=== PATIENT | male | born 1990 | race Hispanic/Latino ===

== ENCOUNTER 2022-11-18 07:36 | Emergency (ER) | payer OTHER ==
[~2022-11-18] VITALS: Ht 167.6 cm; Wt 83.9 kg
[2022-11-18 07:37] VITALS: BP 143/91
[2022-11-18] MEDS ORDERED: ZOSYN 3.375GM +NS 50ML IVPB ONE (08:00)
[2022-11-18] MEDS ORDERED: ACETAMINOPHEN 500 MG TABLET PO ONE (08:00)
[2022-11-18] MEDS ORDERED: KETOROLAC 30MG VIAL (30MG/ML) IVP ONE (08:00)
[2022-11-18 08:30] LABS: HEMATOCRIT 42.4 % (42-54); MEAN CORPUSCULAR HEMOGLOBIN 29.6 pg (27.0-33.0); MEAN CORPUSCULAR HGB CONC 32.8 g/dL (32.0-36.0); MEAN CORPUSCULAR VOLUME 90.4 fL (79-99); PLATELET COUNT (AUTO) 215 K/uL (130-400); RED BLOOD CELL COUNT(AUTO) 4.69 MIL/uL (4.50-6.20); WHITE BLOOD COUNT (AUTO) 11.9 K/uL (4.8-10.8)
[2022-11-18 08:44] LABS: ALBUMIN 2.9 g/dL (3.5-5.0); POTASSIUM 3.8 mmol/L (3.5-5.1); TOTAL PROTEIN, SERUM 6.8 g/dL (6.0-8.3)
[2022-11-18] MEDS ORDERED: IBUP-1493 PO (09:44)
[2022-11-18] MEDS ORDERED: AMOX-427 PO (09:44)
[2022-11-18 09:45] LABS: LYMPHOCYTES % (MANUAL) 6 % (22-44); MAN.DIFF COMMENT-IMPRESSION MANUAL DIFFERENTIAL; MONOCYTES % (MANUAL) 5 % (2-9); SEGMENTED NEUTROPHILS % 89 % (40-70)
[2022-11-18 09:46] LABS: PLATELET MORPHOLOGY COMMENT ADEQUATE
== END 2022-11-18 10:17 | disposition home or self-care (01) ==
LOC: EDH 07:36
DX: L03.011 Cellulitis of right finger (principal)
CPT/HCPCS: 99284; 96365; 96366; 96375; 80053; 85025; 36415; 73130; J1885; J2543

== ENCOUNTER 2022-11-20 08:04 | Emergency (ER) | payer OTHER ==
[~2022-11-20] VITALS: Ht 167.6 cm; Wt 83.9 kg
[~2022-11-20 08:04] MED LIST: AMOX-427 PO; IBUP-1493 PO
[2022-11-20 08:52] LABS: BASOPHILS % (AUTO) 0.3 % (0.0-5.0); EOSINOPHILS % (AUTO) 0.8 % (0.0-8.0); HEMATOCRIT 44.2 % (42-54); LYMPHOCYTES % (AUTO) 10.8 % (21.0-51.0); MEAN CORPUSCULAR HEMOGLOBIN 29.1 pg (27.0-33.0); MEAN CORPUSCULAR HGB CONC 32.4 g/dL (32.0-36.0); MEAN CORPUSCULAR VOLUME 89.8 fL (79-99); MONOCYTES % (AUTO) 6.3 % (3.0-13.0); NEUTROPHILS % (AUTO) 81.5 % (40.0-77.0); PLATELET COUNT (AUTO) 278 K/uL (130-400); RED BLOOD CELL COUNT(AUTO) 4.92 MIL/uL (4.50-6.20); RED CELL DISTRIBUTION WIDTH 12.7 % (11.0-15.5); WHITE BLOOD COUNT (AUTO) 7.2 K/uL (4.8-10.8)
[2022-11-20 09:00] LABS: CREATININE 0.9 mg/dL (0.5-1.5); POTASSIUM 4.2 mmol/L (3.5-5.1)
[2022-11-20] MEDS ORDERED: CLINDAMYCIN IVPB 600MG/50ML 50 ML IV STA (09:00)
[2022-11-20 09:06] LABS: ALBUMIN 3.2 g/dL (3.5-5.0); TOTAL PROTEIN, SERUM 7.7 g/dL (6.0-8.3)
[2022-11-20] MEDS ORDERED: VALA100031 PO (09:34)
[2022-11-20 09:59] VITALS: BP 122/69
== END 2022-11-20 10:09 | disposition home or self-care (01) ==
LOC: EDH 08:04
DX: L03.011 Cellulitis of right finger (principal); B02.9 Zoster without complications; Z79.1 Long term (current) use of non-steroidal anti-inflammatories (NSAID); Z79.899 Other long term (current) drug therapy
CPT/HCPCS: 99284; 96365; 80053; 85025; 36415; J3490

== ENCOUNTER 2024-03-25 12:22 | Emergency (ER) | payer SELFPAY ==
[~2024-03-25] VITALS: Ht 177.8 cm; Wt 87.1 kg
[~2024-03-25 12:22] MED LIST changes: +VALA100031 PO
[2024-03-25] MEDS: KETOROLAC 60 MG VIAL (30MG/ML) IM ONE (13:16)
[2024-03-25 14:48] VITALS: BP 126/64; PULSE 78; RESP 16; O2SAT 99
[2024-03-25] MEDS ORDERED: IBUP-2077 PO (15:03)
== END 2024-03-25 15:10 | disposition home or self-care (01) ==
LOC: EDH 12:22
DX: S90.31XA Contusion of right foot, initial encounter (principal); B07.0 Plantar wart; Z79.899 Other long term (current) drug therapy; Z98.890 Other specified postprocedural states; W22.8XXA Striking against or struck by other objects, initial encounter; Y93.39 Activity, other involving climbing, rappelling and jumping off; Y92.89 Other specified places as the place of occurrence of the external cause; Y99.8 Other external cause status
CPT/HCPCS: 99283; 73630; 96372; J1885